=== PATIENT | male | born 1975 | race African-American/Black ===

== ENCOUNTER 2018-08-13 15:40 | Emergency (ER) | payer OTHER ==
[~2018-08-13] VITALS: Ht 182.9 cm; Wt 104.0 kg
[2018-08-13 16:14] VITALS: BP 113/70
[2018-08-13] MEDS ORDERED: SODIUM CHLORIDE 0.9% 1,000 ML IV ONE (16:23)
[2018-08-13 17:39] LABS: BASOPHILS % 0.3 % (0.0-2.0); HEMOGLOBIN. 13.5 g/dL (14.0-18.0); LYMPHOCYTES % 34.8 % (20.0-50.0); MEAN CORPUSCULAR HEMOGLOBIN 29.5 pg (28.0-32.0); MEAN CORPUSCULAR VOLUME 89.2 fL (80.0-94.0); MEAN PLATELET VOLUME 8.5 fl (7.4-10.4); MONOCYTES % 10.6 % (2.0-8.0); NEUTROPHILS % 53.3 % (40.0-76.0); PLATELET 193 x1000/uL (130-400); RED BLOOD CELL COUNT 4.59 mill/uL (4.7-6.1); RED CELL DISTRIBUTION WIDTH 13.3 % (11.6-14.6)
[2018-08-13 17:42] LABS: CHLORIDE 107 mEq/L (98-107)
[2018-08-13 17:45] LABS: ETHANOL BLOOD < 10 mg/dL
[2018-08-13 17:50] LABS: CARBAMAZEPINE 5.4 ug/mL (4-12)
[2018-08-13] MEDS ORDERED: DIVALPROEX SODIUM 250MG ER TABLET PO ONE (18:00)
== END 2018-08-13 19:01 | disposition home or self-care (01) ==
LOC: ER 15:40
DX: R56.9 Unspecified convulsions (principal)
CPT/HCPCS: 36415; 80053; 80156; 80165; 80320; 85025; 99283; J7030; G0480